=== PATIENT | male | born 1965 | race African-American/Black ===

== ENCOUNTER 2017-05-11 07:32 | Emergency (ER) | payer SELFPAY ==
[2017-05-11] MEDS ORDERED: SODIUM CHLORIDE 0.9% 500 ML IV ONE (07:48)
--- NOTE | 2017-05-11 08:02 | Emergency Department Record ---
History of Present Illness - General Chief Complaint: Abdominal Pain Stated Complaint: HERNIA Time Seen by Provider: 05/11/17 07:47 Source: Patient Mode of Arrival: Ambulatory - History of Present Illness Initial Comments: The patient states that he has had abdominal pain around his umbilicus since he shovelled his driveway . The pain worsens when he bends, strains, attempts to do a sit up, or lifts and is located around and beneath his belly button and feels "like something is poking me." It radiates into his testicles as an ache." He has no radiation to his back, no nausea, vomiting, diarrhea, constipation. He denies other symptoms such as f,c,URI symptoms, cp, angelica. He has high blood pressure but doesn't take his medication because he "can't afford it." The pain level is moderate ranging from 3-6/10 unless he is attempting to lift, when it goes to a 10/10. The patient states this happened 2 years ago after doing heavy lifting and he noticed then that he had a bulging at his upper abdomen in the midline. Friends told him he had a hernia, but when he came here for evaluation he states the bulge wasn't there, and no hernias were found. Today's pain is worse than two years ago, and today's pain is located in a lower position in his abdomen. MD Complaint: Abdominal pain Onset/Timin -: Week(s) Radiation: Suprapubic, Other Migration to: Other Severity: Moderate Quality: Aching Consistency: Constant Improves With: Nothing Worsens With: Movement, Other Associated Symptoms: Denies other symptoms - Related Data Previous Rx's Medication Instructions Recorded Clonidine HCl [Catapres] 0.1 mg PO BID #14 tablet 04/20/15 Clonidine HCl [Catapres] 0.1 mg PO BID #14 tablet 05/21/15 Cyclobenzaprine HCl [Flexeril] 10 mg PO TID #20 tablet 05/21/15 Hydrochlorothiazide [Hctz] 25 mg PO DAILY #30 tablet 05/21/15 Allergies Allergy/AdvReac Type Severity Reaction Status Date / Time NO KNOWN DRUG ALLERGY Allergy PT UNSURE Uncoded 04/20/15 10:25 OF REACTION Travel Screening - Travel/Exposure Within Last 30 Days Have you traveled within the last 30 days?: No - Travel/Exposure Within Last Year Have you traveled outside the [place] in the last year?: No - Additonal Travel Details Have you been exposed to anyone with a communicable illness?: No - Travel Symptoms Symptom Screening: None Review of Systems Reviewed: No additional complaints except as noted below Constitutional: Reports: As per HPI. Denies: Chills, Fever, Malaise, Night sweats, Weakness, Weight change Eyes: Reports: As per HPI. Denies: Eye discharge, Eye pain, Photophobia, Vision change ENT: Reports: As per HPI. Denies: Congestion, Dental pain, Ear pain, Epistaxis , Hearing loss, Throat pain Respiratory: Reports: As per HPI. Denies: Cough, Dyspnea, Hemoptysis, Stridor, Wheezes Cardiovascular: Reports: As per HPI. Denies: Arrhythmia, Chest pain, Dyspnea on exertion, Edema, Murmurs, Orthopnea, Palpitations, Paroxysmal nocturnal dyspnea, Rheumatic Fever, Syncope Endocrine: Reports: As per HPI. Denies: Fatigue, Heat or cold intolerance, Polydipsia, Polyuria Gastrointestinal: Reports: As per HPI. Denies: Abdominal pain, Constipation, Diarrhea, Hematemesis, Hematochezia, Melena, Nausea, Vomiting Genitourinary: Reports: As per HPI. Denies: Dysuria, Frequency, Hematuria, Incontinence, Retention, Testicular pain, Testicular mass, Urgency Musculoskeletal: Reports: As per HPI. Denies: Arthralgia, Back pain, Gout, Joint swelling, Myalgia, Neck pain Skin: Reports: As per HPI. Denies: Bruising, Change in color, Change in hair/ nails, Lesions, Pruritus, Rash Neurological: Reports: As per HPI. Denies: Abnormal gait, Confusion, Headache, Numbness, Paresthesias, Seizure, Tingling, Tremors, Vertigo, Weakness Psychiatric: Reports: As per HPI. Denies: Anxiety, Auditory hallucinations, Depression, Homicidal thoughts, Suicidal thoughts, Visual hallucinations Hematological/Lymphatic: Reports: As per HPI. Denies: Anemia, Blood Clots, Easy bleeding, Easy bruising, Swollen glands Past Medical History - SOCIAL HISTORY Smoking Status: Never smoker Alcohol Use: None Drug Use: None - RESPIRATORY Hx Respiratory Disorders: No - CARDIOVASCULAR Hx Cardio Disorders: Yes Hx Hypertension: Yes - NEURO Hx Neuro Disorders: No - GI Hx GI Disorders: No - Hx Genitourinary Disorders: No - ENDOCRINE Hx Endocrine Disorders: No - MUSCULOSKELETAL Hx Musculoskeletal Disorders: No - PSYCH Hx Psych Problems: No - HEMATOLOGY/ONCOLOGY Hx Hematology/Oncology Disorders: No Family Medical History Any Significant Family History?: No Hx Diabetes: Grandparents Physical Exam - General General Appearance: Alert, Oriented x3, Cooperative, Mild distress (laying flat on cart where he is most comfortable) - Head Head exam: Normal inspection - Eye Eye exam: Normal appearance, PERRL Pupils: Normal accommodation - ENT ENT exam: Normal exam, Mucous membranes moist, Normal external ear exam, Normal orophraynx, TM's normal bilaterally Ear exam: Normal external inspection. negative: External canal tenderness Nasal Exam: Normal inspection. negative: Discharge, Sinus tenderness Mouth exam: Normal external inspection, Tongue normal Teeth exam: Normal inspection. negative: Dental caries Throat exam: Normal inspection. negative: Tonsillar erythema, Tonsillar exudate - Neck Neck exam: Normal inspection, Full ROM. negative: Tenderness - Respiratory Respiratory exam: Normal lung sounds bilaterally. negative: Accessory muscle use, Chest wall tenderness, Respiratory distress - Cardiovascular Cardiovascular Exam: Regular rate, Normal rhythm, Normal heart sounds - GI/Abdominal GI/Abdominal exam: Soft, Normal bowel sounds, Hernia (no palpable hernias while laying flat; ), Tenderness (tender over anterior abdomen around umbilicus and bilaterally into lower quadrants. ). negative: Distended, Rebound, Rigid - Rectal Rectal exam: Deferred - exam: Deferred, Normal inspection, Other (no hernias while laying flat on cart. Patient too painful to stand. Exam done with RN at bedside.). negative: Scrotal swelling, Testicular tenderness, Urethral discharge, Vertical testicular lie - Extremities Extremities exam: Normal inspection, Full ROM, Normal capillary refill. negative: Calf tenderness, Pedal edema, Tenderness - Back Back exam: Reports: Normal inspection, Full ROM. Denies: CVA tenderness (R), CVA tenderness (L), Muscle spasm, Rash noted, Tenderness - Neurological Neurological exam: Alert, CN II-XII intact, Normal gait, Oriented X3, Reflexes normal - Psychiatric Psychiatric exam: Normal affect, Normal mood - Skin Skin exam: Dry, Intact, Normal color, Warm Course Vital Signs 05/11/17 07:35 Temperature 97.6 F Pulse Rate 76 Respiratory 20 Rate Blood Pressure 167/98 Pulse Ox 98 - Reevaluation(s) Reevaluation #1: Patient was re examined in a standing position when he returned from xray. He had no change in his exam from the prior exam done in a horizontal position earlier. No hernias on exam, inguinal or umbilical. he states the toradol helped with his discomfort. Awaiting results. 05/11/17 08:38 Reevaluation #2: Results discussed, all questions answered. Patient is to take his BP medicine, obtain a PCP, wear an abdominal support belt, lose weight to help with his symptoms. 05/11/17 09:19 Medical Decision Making - Management Options MDM Management: No Additional Work-up Planned - Data Complexity MDM Data: Labs Ordered and/or Reviewed, X-Ray Ordered and/or Reviewed - Lab Data Result diagrams: 05/11/17 08:06 05/11/17 08:06 Disposition Disposition: Discharge Clinical Impression: Cystic disease of liver Strain of abdominal wall Qualifiers: Encounter type: initial encounter Qualified Code(s): S39.011A - Strain of muscle, fascia and tendon of abdomen, initial encounter Hypertension Qualifiers: Hypertension type: unspecified Qualified Code(s): I10 - Essential (primary) hypertension Disposition: Home, Self-Care Condition: (1) Good Instructions: Abdominal Pain (ED) Additional Instructions: Purchase and wear abdominal support as needed for comfort. Weight loss. Obtain PCP and take medications as prescribed for BP. Limit lifting bending twisting when painful. Tylenol or iuprofen as directed as needed for pain. Quality - Quality Measures Quality Measures: N/A - Blood Pressure Screening Does Patient Have Any of the Following: No, Active Dx of HTN Blood Pressure Classification: Hypertensive Reading Systolic Measurement: 167 Diastolic Measurement: 98 Screening for High Blood Pressure: Patient Exclusion, Hx of HTN [G9744] First Hypertensive Follow-up Interventions: Follow-up with rescreen GT 1 day and LT 4 weeks.
[2017-05-11] MEDS ORDERED: KETOROLAC 30 MG/ML VIAL IVP ONE (08:07)
[2017-05-11 08:11] LABS: BASO % 0.5 % (0-6); EOS % 5.3 % (0-6); HEMATOCRIT 45.1 % (42.0-52.0); HEMOGLOBIN 15.4 gm/dl (14.0-18.0); LYMPH % 37.2 % (16-45); MEAN CELL VOLUME 83.5 fl (81-97); MEAN CORPUSCULAR HEMOGLOBIN 28.5 pg (27-33); MEAN CORPUSCULAR HGB CONC 34.1 g/dl (32-36); MEAN PLATELET VOLUME 10.7 fl (7.4-10.4); PLATELET COUNT 238 K/uL (130-400); RED CELL DISTRIBUTION WIDTH 14.3 % (11.5-14.5)
[2017-05-11 08:20] LABS: URINE APPEARANCE SL CLOUDY; URINE BILIRUBIN NEGATIVE (NEGATIVE); URINE BLOOD NEGATIVE (NEGATIVE); URINE COLOR YELLOW; URINE GLUCOSE (UA) NEGATIVE (NEGATIVE); URINE KETONE NEGATIVE (NEGATIVE); URINE LEUKOCYTE ESTERASE NEGATIVE (NEGATIVE); URINE NITRITE NEGATIVE (NEGATIVE); URINE PROTEIN NEGATIVE (NEGATIVE); URINE UROBILINOGEN 0.2 E.U./dL (0.20 - 1.00)
[2017-05-11 08:25] LABS: BLOOD UREA NITROGEN 13 mg/dL (6-20); CREATININE 1.1 mg/dL (0.7-1.2); EST GLOMERULAR FILTRATION RATE > 60 mL/min
[2017-05-11 08:26] LABS: TOTAL PROTEIN 7.9 g/dL (6.6-8.7)
[2017-05-11 08:28] LABS: GLUCOSE,RANDOM 119 mg/dL (74-109)
[2017-05-11 08:31] LABS: ALBUMIN 4.3 g/dL (4.0-5.0); ALKALINE PHOSPHATASE 60 U/L (40-129); ALT/SGPT 26 U/L (<41); AST/SGOT 21 U/L (10.0-50.0); LIPASE 104 U/L (13-60)
[2017-05-11 08:32] LABS: BILIRUBIN,DIRECT < 0.2 mg/dL (0-0.3)
--- NOTE | 2017-05-11 10:20 | CT SCAN REPORT ---
EXAM: CT SCAN ABDOMEN/PELVIS W CONTRAST HISTORY: ABDOMINAL PAIN. TECHNIQUE: CT abdomen/pelvis was performed following IV administration of 100 mL of Omnipaque-300 contrast. Lack of oral contrast limits evaluation of bowel. COMPARISON: Prior CT from 04/20/15. FINDINGS: Limited evaluation of the lung bases is unremarkable. Osseous structures are grossly intact. Innumerable hepatic cysts are again noted. The spleen, adrenal glands, and pancreas are unremarkable. Multiple bilateral renal cysts are also noted. Correlate with any history of polycystic kidney/liver disease. The gallbladder is present. No gross evidence for bowel obstruction. Normal appendix. Moderate stool in the colon. No free air or free fluid. The urinary bladder is not distended, limiting its evaluation. IMPRESSION: 1. FINDINGS SUGGESTIVE OF POLYCYSTIC LIVER/KIDNEY DISEASE. CORRELATE WITH HISTORY. 2. MODERATE STOOL IN THE COLON. JOB NUMBER: [id number] MTDD
== END 2017-05-11 09:36 | disposition home or self-care (01) ==
LOC: ER 07:32
DX: S39.011A Strain of muscle, fascia and tendon of abdomen, initial encounter (principal); I10 Essential (primary) hypertension; Q44.6 Cystic disease of liver; Y93.H1 Activity, digging, shoveling and raking; Y92.008 Other place in unspecified non-institutional (private) residence as the place of occurrence of the external cause
CPT/HCPCS: 74177; 80048; 80076; 81003; 83690; 85025; 96374; 99284; J1885